=== PATIENT | male | born 1950 | race Caucasian/White ===

== ENCOUNTER 2017-11-19 20:43 | Inpatient (IN) | payer MEDICARE ==
[~2017-11-19] VITALS: Ht 162.6 cm; Wt 59.5 kg
[~2017-11-19 20:43] MED LIST: ALL220TA PO; CHLOTAB5; DAY-LIQ6; TAMS0.4C67 PO; ZITH250T PO
[2017-11-19 20:44] VITALS: BP 158/84; PULSE 78; RESP 16; TEMP 98.6; O2SAT 100
[2017-11-19] MEDS ORDERED: SODIUM CHLOR 0.9% 1000 ML INJ 1,000 ML IV ONE (21:46)
[2017-11-19] MEDS ORDERED: CEPH-460 PO (21:46)
--- NOTE | 2017-11-19 21:50 | PD ---
HPI Chief Complaint: Pain: Acute or Chronic Time Seen by Provider: 21:36 Travel History International Travel<30 days: No Contact w/Intl Traveler<30days: No Traveled to known affect area: No History of Present Illness HPI 67-year-old male presents to the emergency department for evaluation of left low back pain that radiates to the left groin. He states this started approximately 6 hours ago. He states is currently 3/10, dull pain. He states it was worse earlier, but relieved when he was at work. He denies any fevers or chills. No current chest pain or shortness of breath. No nausea, vomiting, diarrhea. He does state that he recently had 2 abscesses to the buttocks drained. He states these are doing well and healing. He is currently taking Keflex for this. Patient has a history nephrolithiasis. Moderate severity. No exacerbating or alleviating factors. 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) Reproductive: No Respiratory: Yes (BRONCHITIS) Immunizations Current: Yes Radiation Therapy: No Renal Failure: No Thyroid Disease: No Past Surgical History Abdominal Surgery: Yes (BILATERAL HERNIA REPAIR) Cardiac Surgery: No Ear Surgery: No Endocrine Surgery: No Eye Surgery: No Genitourinary Surgery: Yes (LITHOTRIPSY X2) Gynecologic Surgery: No Oral Surgery: No Pacemaker: No Thoracic Surgery: No Other Surgery: Yes (GROWTH REMOVED LEFT ARM) Social History Alcohol Use: Yes (SELDOM) Tobacco Use: No Substance Use: No Allergies-Medications (Allergen,Severity, Reaction): Coded Allergies: No Known Allergies (Verified Allergy, Unknown, 11/20/17) Reported Meds & Prescriptions Reported Meds & Active Scripts Active Reported Keflex (Cephalexin) 500 Mg Cap 500 Mg PO Q8H Review of Systems Except as stated in HPI: all other systems reviewed are Neg Physical Exam Narrative GENERAL: Well-nourished, well-developed male patient, afebrile. SKIN: Focused skin assessment warm/dry. Patient has healing abscesses to bilateral buttocks without pain to palpation. Mild erythema noted. HEAD: Normocephalic. Atraumatic. EYES: No scleral icterus. No injection or drainage. NECK: Supple, trachea midline. No JVD or lymphadenopathy. CARDIOVASCULAR: Regular rate and rhythm without murmurs, gallops, or rubs. RESPIRATORY: Breath sounds equal bilaterally. No accessory muscle use. Lungs sounds are clear to auscultation. GASTROINTESTINAL: Abdomen soft, non-tender, nondistended. Patient has mild tenderness over left groin region. MUSCULOSKELETAL: No cyanosis, or edema. BACK: Nontender without obvious deformity. No CVA tenderness. Data Data Last Documented VS Vital Signs Date Time Temp Pulse Resp B/P (MAP) Pulse Ox O2 Delivery O2 Flow Rate FiO2 11/19/17 20:44 98.6 78 16 158/84 (108) 100 Room Air Orders Orders Complete Blood Count With Diff (11/19/17 21:46) Comprehensive Metabolic Panel (11/19/17 21:46) Urinalysis - C+S If Indicated (11/19/17 21:46) Ct Abd/Pel W/O Iv Contrast (11/19/17 21:46) Ecg Monitoring (11/19/17 21:46) Iv Access Insert/Monitor (11/19/17 21:46) Ondansetron Inj (Zofran Inj) (11/19/17 22:00) Sodium Chloride 0.9% Flush (Ns Flush) (11/19/17 22:00) Sodium Chlor 0.9% 1000 Ml Inj (Ns 1000 M (11/19/17 21:46) Lipase (11/19/17 21:46) Urine Culture (11/19/17 21:55) Ceftriaxone Inj (Rocephin Inj) (11/19/17 23:15) Admit Order (Ed Use Only) (11/19/17 ) Vital Signs (Adult) Q4H (11/19/17 23:56) Activity Oob With Assistance (11/19/17 23:56) Notify Dr: Other (11/19/17 23:56) Labs Laboratory Tests Test 11/19/17 21:55 White Blood Count 9.7 TH/MM3 Red Blood Count 4.67 MIL/MM3 Hemoglobin 14.5 GM/DL Hematocrit 42.1 % Mean Corpuscular Volume 90.2 FL Mean Corpuscular Hemoglobin 31.1 PG Mean Corpuscular Hemoglobin Concent 34.5 % Red Cell Distribution Width 13.2 % Platelet Count 273 TH/MM3 Mean Platelet Volume 8.6 FL Neutrophils (%) (Auto) 77.1 % Lymphocytes (%) (Auto) 14.4 % Monocytes (%) (Auto) 7.3 % Eosinophils (%) (Auto) 0.5 % Basophils (%) (Auto) 0.7 % Neutrophils # (Auto) 7.4 TH/MM3 Lymphocytes # (Auto) 1.4 TH/MM3 Monocytes # (Auto) 0.7 TH/MM3 Eosinophils # (Auto) 0.0 TH/MM3 Basophils # (Auto) 0.1 TH/MM3 CBC Comment DIFF FINAL Differential Comment Urine Color LIGHT-YELLOW Urine Turbidity CLEAR Urine pH 5.0 Urine Specific [place] 1.013 Urine Protein NEG mg/dL Urine Glucose (UA) NEG mg/dL Urine Ketones NEG mg/dL Urine Occult Blood MOD Urine Nitrite NEG Urine Bilirubin NEG Urine Urobilinogen LESS THAN 2.0 MG/DL Urine Leukocyte Esterase SMALL Urine RBC 21 /hpf Urine WBC 9 /hpf Urine Mucus FEW /lpf Microscopic Urinalysis Comment CULTURE INDICATED Blood Urea Nitrogen 22 MG/DL Creatinine 1.12 MG/DL Random Glucose 92 MG/DL Total Protein 7.7 GM/DL Albumin 4.0 GM/DL Calcium Level 8.4 MG/DL Alkaline Phosphatase 64 U/L Aspartate Amino Transf (AST/SGOT) 26 U/L Alanine Aminotransferase (ALT/SGPT) 26 U/L Total Bilirubin 0.5 MG/DL Sodium Level 139 MEQ/L Potassium Level 4.1 MEQ/L Chloride Level 106 MEQ/L Carbon Dioxide Level 24.6 MEQ/L Anion Gap 8 MEQ/L Estimat Glomerular Filtration Rate 65 ML/MIN Lipase 217 U/L [facility] Medical Decision Making Medical Screen Exam Complete: Yes Emergency Medical Condition: Yes Medical Record Reviewed: Yes Interpretation(s) Last Impressions Abdomen/Pelvis CT 11/19/172145 Signed Impressions: Service Date/Time: Sunday, November 19, 2017 22:02 - CONCLUSION: 1. Large obstructing stones of the right UPJ and left UVJ. Please see above. Obstruction is associated with perinephric edema on the left. Both stones can be seen on the initial digital producer radiograph. 2. Multiple nonobstructing stones in both kidneys. 3. Cholelithiasis without evidence of cholecystitis or biliary obstruction. 4. Diverticulosis without diverticulitis. Star Maxwell MD Differential Diagnosis Nephrolithiasis versus ureterolithiasis versus UTI versus pyelonephritis Narrative Course 67-year-old male presents to the emergency department for evaluation of left low back pain that radiates to the left groin that started today. IV access established. CBC, CMP, lipase, UA are ordered and pending. CT abdomen/pelvis without contrast is ordered and pending. Patient is given normal saline 1 L IV bolus, Zofran 4 mg IV. CBC shows no acute abnormality. UA shows moderate occult blood, small leukocyte esterase, 9 WBC, [address] abdomen/pelvis shows large instructing stones of the right UPJ and left UVJ. Obstruction is associated with perinephric edema on the left. Both stones can be seen on the initial digital producer radiograph. He also has multiple nonobstructing stones in both kidneys. Patient is given Rocephin 1 g IV for UTI. CMP, lipase are pending. Dr. Knowles will follow up on results and admit patient. Ayanna Deras Nov 19, 2017 21:50
[2017-11-19] MEDS ORDERED: SODIUM CHLORIDE 0.9% FLUSH 10 ML FLUSH IVF PRN (22:00)
[2017-11-19] MEDS ORDERED: ONDANSETRON HCL 4 MG/2 ML VIAL IV PUSH ONE (22:00)
[2017-11-19 22:24] LABS: AUTOMATED NEUTROPHIL # 7.4 TH/MM3 (1.8-7.7); BASOPHIL # 0.1 TH/MM3 (0-0.2); BASOPHIL % 0.7 % (0.0-2.0); EOSINOPHIL % 0.5 % (0.0-4.0); HEMATOCRIT 42.1 % (39.0-51.0); HEMOGLOBIN 14.5 GM/DL (13.0-17.0); LYMPH % 14.4 % (9.0-44.0); LYMPHOCYTE # 1.4 TH/MM3 (1.0-4.8); MEAN CELL VOLUME 90.2 FL (80.0-100.0); MEAN CORPUSCULAR HEMOGLOBIN 31.1 PG (27.0-34.0); MEAN CORPUSCULAR HGB CONC 34.5 % (32.0-36.0); MEAN PLATELET VOLUME 8.6 FL (7.0-11.0); MONO % 7.3 % (0.0-8.0); MONOCYTE # 0.7 TH/MM3 (0-0.9); NEUT % 77.1 % (16.0-70.0); PLATELET COUNT 273 TH/MM3 (150-450); RED BLOOD COUNT 4.67 MIL/MM3 (4.50-5.90); RED CELL DISTRIBUTION WIDTH 13.2 % (11.6-17.2); WHITE BLOOD COUNT 9.7 TH/MM3 (4.0-11.0)
--- NOTE | 2017-11-19 22:26 | RADRPT ---
EXAM DATE/TIME: 11/19/2017 22:02 [place] COMPARISON: Report only CT ABDOMEN & PELVIS W/O CONTRAST, December 31, 2013, 17:18. INDICATIONS : Flank pain. ORAL CONTRAST: No oral contrast ingested. RADIATION DOSE: 4.42 CTDIvol (mGy) MEDICAL HISTORY : Hypertension. Renal calculi. SURGICAL HISTORY : None. ENCOUNTER: Initial ACUITY: 1 day PAIN SCALE: 4/10 LOCATION: Bilateral flank TECHNIQUE: Volumetric scanning of the abdomen and pelvis was performed. Using automated exposure control and ad justment of the mA and/or kV according to patient size, radiation dose was kept as low as reasonably achievable to obtain optimal diagnostic quality images. DICOM format image data is available electro nically for review and comparison. FINDINGS: There is an 8 x 10 x 12 mm stone in the proximal right ureter, just below the UPJ and causes mild to moderate hydronephrosis. There is a 5 x 10 x 7 mm stone of the left ureterovesical junction causing moderate hydronephrosis an d hydroureter. This includes mild left perinephric edema. Nonobstructing 2 x 3 mm stone of the right lower pole, 10 mm stone in the left mid zone and multiple stones measuring up to 10 mm of the left lower pole. Noncontrast appearance of the liver, spleen, pancreas and adrenal glands within normal limits. Severa l small stones are seen in an otherwise normal-appearing gallbladder. There is no duct stone or ducta l dilatation. Mild to moderate diverticulosis seen of the sigmoid colon. No acute inflammatory changes. The appendi x is normal. Visualized lung bases are clear. No acute bony abnormality demonstrated. CONCLUSION: 1. Large obstructing stones of the right UPJ and left UVJ. Please see above. Obstruction is associate d with perinephric edema on the left. Both stones can be seen on the initial clinical rehab liaison radiograph. 2. Multiple nonobstructing stones in both kidneys. 3. Cholelithiasis without evidence of cholecystitis or biliary obstruction. 4. Diverticulosis without diverticulitis. Star Maxwell MD on November 19, 2017 at 22:20 Board Certified Radiologist. This report was verified electronically.
[2017-11-19 22:53] LABS: BILIRUBIN, URINE NEG (NEG); BLOOD, URINE MOD (NEG); GLUCOSE,URINE NEG (NEG); KETONE, URINE NEG (NEG); MUCUS URINE FEW /lpf (OCC); NITRITE,URINE NEG (NEG); URINE COLOR LIGHT-YELLOW (YELLW/STRAW); URINE LEUKOCYTE ESTERASE SMALL (NEG)
[2017-11-19 23:05] LABS: ALKALINE PHOSPHATASE 64 U/L (45-117); TOTAL BILIRUBIN ADULT 0.5 MG/DL (0.2-1.0); TOTAL PROTEIN 7.7 GM/DL (6.4-8.2)
[2017-11-19 23:07] LABS: ALT (GPT) 26 U/L (12-78); AST (GOT) 26 U/L (15-37); BICARBONATE 24.6 MEQ/L (21.0-32.0); BLOOD UREA NITROGEN 22 MG/DL (7-18); CALCIUM 8.4 MG/DL (8.5-10.1); CHLORIDE 106 MEQ/L (98-107); CREATININE 1.12 MG/DL (0.60-1.30); GLOMERULAR FILTRATION RATE 65 ML/MIN (>89); GLUCOSE,RANDOM 92 MG/DL (74-106); LIPASE 217 U/L (73-393); SODIUM (NA) 139 MEQ/L (136-145)
[2017-11-19] MEDS ORDERED: cefTRIAXone INJ 1,000 MG in SODIUM CHLORIDE 0.9% INJ 100 ML IV ONE (23:15)
--- NOTE | 2017-11-19 23:50 | HHI.HP ---
[facility] Primary Care Physician Admission Diagnosis Diagnoses: (1) Renal stones Diagnosis: Principal (2) Hydronephrosis Diagnosis: Principal (3) UTI (urinary tract infection) Diagnosis: Principal (4) Intractable pain Diagnosis: Principal (5) HTN (hypertension) Diagnosis: Principal Travel History International Travel<30 Days: No Contact w/Intl Traveler <30 Da: No Traveled to Known Affected Are: No History of Present Illness This is a 67-year-old male with a PMH of Renal Stones and HTN who presented to the ER with complaints of left-sided back pain starting few hours prior to arrival. States pain comes in waves, at times is severe, 10/10, sharp, intermittent and radiates to left groin, other times pain is 3-4/10. Denies fever, chills, nausea or vomiting. States he's been taking Keflex for gluteal abscesses and thought symptoms might be due to antibiotics. On arrival, BP 158/ 84, HR 78, O2 sat 100% on RA, Afebrile. CBC unremarkable. Chemistry essentially unremarkable except for BUN 22, GFR 65. UA positive for UTI. CT Abd/Pelvis w/ large obstructing stones at the right UPJ and left UVJ w/ moderate hydronephrosis and perinephric stranding. S/p Rocephin, Zofran and IVF in ER. Review of Systems Except as stated in HPI: all other systems reviewed are Neg ROS: 14 point review of systems otherwise negative. Past Family Social History Past Medical History PMH: Renal Stones and HTN Past Surgical History PAST SURGICAL HISTORY: Bilateral Hernia Repair, Lithotripsy Allergies: Coded Allergies: No Known Allergies (Verified Allergy, Unknown, 11/20/17) Family History PAST FAMILY HISTORY: Reviewed. No h/o DM or CAD Social History PAST SOCIAL HISTORY: Occasional alcohol. Negative for tobacco or drugs. Physical Exam Vital Signs Vital Signs Date Time Temp Pulse Resp B/P (MAP) Pulse Ox O2 Delivery O2 Flow Rate FiO2 11/19/17 20:44 98.6 78 16 158/84 (108) 100 Room Air Physical Exam PE: GENERAL: Pleasant middle-aged male in no acute distress. HEENT: PERRLA, EOMI. No scleral icterus or conjunctival pallor. No lid lag or facial droop. CARDIOVASCULAR: Regular rate and rhythm. No obvious murmurs to auscultation. No chest tenderness to palpation. RESPIRATORY: No obvious rhonchi or wheezing. Clear to auscultation. Breath sounds equal bilaterally. GASTROINTESTINAL: Abdomen soft, non-tender, nondistended. BS normal. Left flank /groin tenderness to palpation. MUSCULOSKELETAL: Extremities without clubbing, cyanosis, or edema. No obvious deformities. NEUROLOGICAL: Awake, alert and oriented x4. No focal neurologic deficits. Moving both upper and lower extremities spontaneously. Laboratory Laboratory Tests Test 11/19/17 21:55 White Blood Count 9.7 Red Blood Count 4.67 Hemoglobin 14.5 Hematocrit 42.1 Mean Corpuscular Volume 90.2 Mean Corpuscular Hemoglobin 31.1 Mean Corpuscular Hemoglobin Concent 34.5 Red Cell Distribution Width 13.2 Platelet Count 273 Mean Platelet Volume 8.6 Neutrophils (%) (Auto) 77.1 Lymphocytes (%) (Auto) 14.4 Monocytes (%) (Auto) 7.3 Eosinophils (%) (Auto) 0.5 Basophils (%) (Auto) 0.7 Neutrophils # (Auto) 7.4 Lymphocytes # (Auto) 1.4 Monocytes # (Auto) 0.7 Eosinophils # (Auto) 0.0 Basophils # (Auto) 0.1 CBC Comment DIFF FINAL Differential Comment Urine Color LIGHT-YELLOW Urine Turbidity CLEAR Urine pH 5.0 Urine Specific [place] 1.013 Urine Protein NEG Urine Glucose (UA) NEG Urine Ketones NEG Urine Occult Blood MOD Urine Nitrite NEG Urine Bilirubin NEG Urine Urobilinogen LESS THAN 2.0 Urine Leukocyte Esterase SMALL Urine RBC 21 Urine WBC 9 Urine Mucus FEW Microscopic Urinalysis Comment CULTURE INDICATED Blood Urea Nitrogen 22 Creatinine 1.12 Random Glucose 92 Total Protein 7.7 Albumin 4.0 Calcium Level 8.4 Alkaline Phosphatase 64 Aspartate Amino Transf (AST/SGOT) 26 Alanine Aminotransferase (ALT/SGPT) 26 Total Bilirubin 0.5 Sodium Level 139 Potassium Level 4.1 Chloride Level 106 Carbon Dioxide Level 24.6 Anion Gap 8 Estimat Glomerular Filtration Rate 65 Lipase 217 Date/Time Source Procedure Growth Status 11/19/17 21:55 Urine Clean Catch Urine Culture Pending Received Result Diagram: 11/19/17215411/19/172154 Caprini VTE Risk Assessment Caprini VTE Risk Assessment: No/Low Risk (score <= 1) Caprini Risk Assessment Model Point Value = 1 Point Value = 2 Point Value = 3 Point Value = 5 Age 41-60 Minor surgery BMI > 25 kg/m2 Swollen legs Varicose veins or History of unexplained or recurrent spontaneous Oral contraceptives or hormone replacement Sepsis (< 1 month) Serious lung disease, including pneumonia (< 1 month) Abnormal pulmonary function Acute myocardial infarction Congestive heart failure (< 1 month) History of inflammatory bowel disease Medical patient at bed rest Age 61-74 Arthroscopic surgery Major open surgery (> 45 min) Laparoscopic surgery (> 45 min) Malignancy Confined to bed (> 72 hours) Immobilizing plaster cast Central venous access Age >= 75 History of VTE Family history of VTE Factor V Leiden Prothrombin [id number] Lupus anticoagulant Anticardiolipin antibodies Elevated serum homocysteine Heparin-induced thrombocytopenia Other congenital or acquired thrombophilia Stroke (< 1 month) Elective arthroplasty Hip, pelvis, or leg fracture Acute spinal cord injury (< 1 month) Prophylaxis Regimen Total Risk Factor Score Risk Level Prophylaxis Regimen 0-1 Low Early ambulation 2 Moderate Order ONE of the following: *Sequential Compression Device (SCD) *Heparin 5000 units SQ BID 3-4 Higher Order ONE of the following medications: *Heparin 5000 units SQ TID *Enoxaparin/Lovenox 40 mg SQ daily (WT < 150 kg, CrCl > 30 mL/min) *Enoxaparin/Lovenox 30 mg SQ daily (WT < 150 kg, CrCl > 10-29 mL/min) *Enoxaparin/Lovenox 30 mg SQ BID (WT < 150 kg, CrCl > 30 mL/min) AND/OR *Sequential Compression Device (SCD) 5 or more Highest Order ONE of the following medications: *Heparin 5000 units SQ TID (Preferred with Epidurals) *Enoxaparin/Lovenox 40 mg SQ daily (WT < 150 kg, CrCl > 30 mL/min) *Enoxaparin/Lovenox 30 mg SQ daily (WT < 150 kg, CrCl > 10-29 mL/min) *Enoxaparin/Lovenox 30 mg SQ BID (WT < 150 kg, CrCl > 30 mL/min) AND *Sequential Compression Device (SCD) Assessment and Plan Problem List: (1) Renal stones ICD Code: N20.0 - Calculus of kidney (2) Hydronephrosis ICD Code: N13.30 - Unspecified hydronephrosis (3) Intractable pain ICD Code: R52 - Pain, unspecified (4) UTI (urinary tract infection) ICD Code: N39.0 - Urinary tract infection, site not specified (5) HTN (hypertension) ICD Code: I10 - Essential (primary) hypertension Assessment and Plan A/P: 1. Renal Stones: h/o Renal Stones s/p Lithotripsy now w/ bilateral obstructing stones, [id number] stone right UPJ and [id number] left UVJ. Analgesics /antiemetics as needed. Flomax. IVF for hydration. Consult Urology for further evaluation/likely intervention. 2. Hydronephrosis: CT Abd/Pelvis w/ moderate hydronephrosis bilaterally secondary to above, images reviewed by me. Will monitor closely for progression. 3. UTI: U/a w/ UTI, s/p Rocephin in ER, continue w/ IV Abx, follow up cultures. 4. Intractable Pain: Analgesics/antiemetics as needed. 5. HTN: BP 150's, likely compounded by acute pain. Monitor BP, start antihypertensives as needed. 6. DVT Prophylaxis: SCD/Teds. 7. Social work for d/c planning as needed. 8. Case discussed w/ ER physician at length, labs/imaging/records reviewed by me. Physician Certification 2 Midnight Certification Type: Admission for Inpatient Services Order for Inpatient Services The services are ordered in accordance with Medicare regulations or non- Medicare payer requirements, as applicable. In the case of services not specified as inpatient-only, they are appropriately provided as inpatient services in accordance with the 2-midnight benchmark. Estimated LOS (days): 2 days is the estimated time the patient will need to remain in the hospital, assuming treatment plan goals are met and no additional complications. Post-Hospital Plan: Not yet determined Edith Muñoz MD Nov 19, 2017 23:50
[2017-11-20] VITALS (18 sets, daily range): BP systolic 119–142; BP diastolic 63–76; PULSE 54–76; RESP 16–18; TEMP 98.3–98.5; O2SAT 96–99
[2017-11-20] MEDS ORDERED: MORPHINE SULFATE 2 MG/ML INJ IV PUSH PRN
[2017-11-20] MEDS ORDERED: ACETAMINOPHEN/HYDROcodone 325 MG/5 MG TAB PO PRN
[2017-11-20] MEDS ORDERED: MAGNESIUM HYDROXIDE SUSP 30 ML CUP PO PRN
[2017-11-20] MEDS ORDERED: ONDANSETRON HCL 4 MG/2 ML VIAL IVP PRN
[2017-11-20] MEDS ORDERED: LACTULOSE SYRUP 20 GM/30 ML CUP PO PRN
[2017-11-20] MEDS ORDERED: SODIUM CHLORIDE 0.9% FLUSH 10 ML FLUSH IV FLUSH PRN
[2017-11-20] MEDS ORDERED: SENNOSIDES 8.6 MG TAB PO PRN
[2017-11-20] MEDS ORDERED: BISACODYL 10 MG SUPP RECTAL PRN
[2017-11-20] MEDS ORDERED: ACETAMINOPHEN 325 MG TAB PO PRN
[2017-11-20] MEDS: SODIUM CHLOR 0.9% 1000 ML INJ 1,000 ML IV SCH ×3 (01:30→20:00)
[2017-11-20 07:00] LABS: AUTOMATED NEUTROPHIL # 2.8 TH/MM3 (1.8-7.7); BASOPHIL # 0.1 TH/MM3 (0-0.2); EOSINOPHIL # 0.1 TH/MM3 (0-0.4); EOSINOPHIL % 2.4 % (0.0-4.0); HEMATOCRIT 39.1 % (39.0-51.0); HEMOGLOBIN 13.3 GM/DL (13.0-17.0); LYMPH % 29.2 % (9.0-44.0); LYMPHOCYTE # 1.5 TH/MM3 (1.0-4.8); MEAN CELL VOLUME 90.9 FL (80.0-100.0); MEAN CORPUSCULAR HEMOGLOBIN 30.9 PG (27.0-34.0); MEAN PLATELET VOLUME 7.9 FL (7.0-11.0); MONO % 12.6 % (0.0-8.0); MONOCYTE # 0.7 TH/MM3 (0-0.9); NEUT % 54.8 % (16.0-70.0); PLATELET COUNT 218 TH/MM3 (150-450); RED CELL DISTRIBUTION WIDTH 13.3 % (11.6-17.2); WHITE BLOOD COUNT 5.2 TH/MM3 (4.0-11.0)
[2017-11-20 07:18] LABS: ALBUMIN 3.2 GM/DL (3.4-5.0); ALKALINE PHOSPHATASE 54 U/L (45-117); ALT (GPT) 19 U/L (12-78); AST (GOT) 12 U/L (15-37); BICARBONATE 23.2 MEQ/L (21.0-32.0); BLOOD UREA NITROGEN 13 MG/DL (7-18); CALCIUM 7.9 MG/DL (8.5-10.1); CHLORIDE 111 MEQ/L (98-107); CREATININE 0.92 MG/DL (0.60-1.30); GLOMERULAR FILTRATION RATE 82 ML/MIN (>89); GLUCOSE,RANDOM 92 MG/DL (74-106); SODIUM (NA) 143 MEQ/L (136-145); TOTAL BILIRUBIN ADULT 0.4 MG/DL (0.2-1.0); TOTAL PROTEIN 6.2 GM/DL (6.4-8.2)
--- NOTE | 2017-11-20 08:34 | HHI.PR ---
Subjective Remarks Patient in bed says pain is better controlled . No fever or chills since yesterday. No n/v/d/c. Denies chest pain or sob. Pain is controlled by meds. Seen by Dr Saravia. Plan for stent placement. Objective Vitals Vital Signs Date Time Temp Pulse Resp B/P (MAP) Pulse Ox O2 Delivery O2 Flow Rate FiO2 11/20/17 06:16 58 18 119/70 (86) 99 Room Air 11/20/17 02:14 59 16 140/63 (88) 98 Room Air 11/19/17 20:44 98.6 78 16 158/84 (108) 100 Room Air Result Diagram: 11/20/17 0600 11/20/17 0600 Imaging Last Impressions Abdomen/Pelvis CT 11/19/172145 Signed Impressions: Service Date/Time: Sunday, November 19, 2017 22:02 - CONCLUSION: 1. Large obstructing stones of the right UPJ and left UVJ. Please see above. Obstruction is associated with perinephric edema on the left. Both stones can be seen on the initial compliance engineer radiograph. 2. Multiple nonobstructing stones in both kidneys. 3. Cholelithiasis without evidence of cholecystitis or biliary obstruction. 4. Diverticulosis without diverticulitis. Star Maxwell MD Objective Remarks GENERAL: Pleasant middle-aged male in no acute distress. HEENT: PERRLA, EOMI. No scleral icterus or conjunctival pallor. No lid lag or facial droop. CARDIOVASCULAR: Regular rate and rhythm. No obvious murmurs to auscultation. No chest tenderness to palpation. RESPIRATORY: No obvious rhonchi or wheezing. Clear to auscultation. Breath sounds equal bilaterally. GASTROINTESTINAL: Abdomen soft, non-tender, nondistended. BS normal. Left flank /groin tenderness to palpation. MUSCULOSKELETAL: Extremities without clubbing, cyanosis, or edema. No obvious deformities. NEUROLOGICAL: Awake, alert and oriented x4. No focal neurologic deficits. Moving both upper and lower extremities spontaneously. A/P Problem List: (1) Renal stones ICD Code: N20.0 - Calculus of kidney (2) Hydronephrosis ICD Code: N13.30 - Unspecified hydronephrosis (3) Intractable pain ICD Code: R52 - Pain, unspecified (4) UTI (urinary tract infection) ICD Code: N39.0 - Urinary tract infection, site not specified (5) HTN (hypertension) ICD Code: I10 - Essential (primary) hypertension Assessment and Plan Renal Stones: h/o Renal Stones s/p Lithotripsy now w/ bilateral obstructing stones, [id number] stone right UPJ and [id number] left UVJ. Analgesics/ antiemetics as needed. Flomax. IVF for hydration. Consult Urology for further evaluation/likely intervention. Keep NPO after midnight, plan for OR tomorrow bu Dr Saravia Hydronephrosis: CT Abd/Pelvis w/ moderate hydronephrosis bilaterally secondary to above, images reviewed by me. Will monitor closely for progression. UTI: U/a w/ UTI, s/p Rocephin in ER, continue w/ IV Abx, follow up cultures. Intractable Pain: Analgesics/antiemetics as needed. HTN: BP 150's, likely compounded by acute pain. Monitor BP, start antihypertensives as needed. DVT Prophylaxis: SCD/Teds. Social work for d/c planning as needed. Discussed with the patient, nurse. Cecille Moreland MD Nov 20, 2017 08:34
[2017-11-20] MEDS: DOCUSATE SODIUM 50 MG/SENNA 8.6 MG TAB PO SCH ×2 (09:00→20:46)
[2017-11-20] MEDS: SODIUM CHLORIDE 0.9% FLUSH 10 ML FLUSH IV FLUSH SCH ×2 (09:15→20:46)
[2017-11-20] MEDS: TAMSULOSIN HCL 0.4 MG CAP PO SCH (09:16)
--- NOTE | 2017-11-20 14:45 | PD.CONS ---
HPI Service Urology Consult Requested By Dr. Muñoz Reason for Consult Bilateral obstructing ureteral calculi Primary Care Physician No Primary Care Physician Diagnosis: (1) Renal stones ICD Code: N20.0 - Calculus of kidney (2) Hydronephrosis ICD Code: N13.30 - Unspecified hydronephrosis (3) Intractable pain ICD Code: R52 - Pain, unspecified (4) UTI (urinary tract infection) ICD Code: N39.0 - Urinary tract infection, site not specified (5) HTN (hypertension) ICD Code: I10 - Essential (primary) hypertension History of Present Illness 67 year-old gentleman with history recurrent nephrolithiasis who is status post multiple urologic procedures in the past who presented to emergency room with increasing left flank pain. Workup included a CT scan that demonstrated an obstructing 1 cm left ureterovesical junction calculus with hydronephrosis. Also noted was a 1 cm obstructing right proximal ureteral calculus with hydronephrosis as well. Also noted were multiple bilateral nephrolithiasis. Patient has been afebrile. He denies gross hematuria. BUN and creatinine were not significantly elevated. At the time of consultation the patient's pain was well controlled. He denied dysuria or gross hematuria. Review of Systems Constitutional: DENIES: Fever, Chills Cardiovascular: DENIES: Chest pain Gastrointestinal: DENIES: Abdominal pain Musculoskeletal: COMPLAINS OF: Back pain (left flank) Except as stated in HPI: all other systems reviewed are Neg Past Family Social History Past Medical History Recurrent nephrolithiasis Hypertension Past Surgical History Multiple urologic procedures including shockwave lithotripsy Status post bilateral inguinal herniorrhaphies Reported Medications Refer to EMR Allergies: Coded Allergies: No Known Allergies (Verified Allergy, Unknown, 11/20/17) Active Ordered Medications Refer to EMR Family History Reviewed and noncontributory Social History Denies tobacco, alcohol or intravenous drug abuse Physical Exam Vital Signs Date Time Temp Pulse Resp B/P (MAP) Pulse Ox O2 Delivery O2 Flow Rate FiO2 11/20/17 10:56 67 15 124/72 (89) 98 11/20/17 08:53 98.4 61 16 121/73 (89) 98 Room Air 11/20/17 06:16 58 18 119/70 (86) 99 Room Air 11/20/17 02:14 59 16 140/63 (88) 98 Room Air 11/19/17 20:44 98.6 78 16 158/84 (108) 100 Room Air Physical Exam GENERAL: This is a well-nourished, well-developed patient, in no apparent distress. SKIN: No rashes, ecchymoses or lesions. Cool and dry. HEAD: Atraumatic. Normocephalic. No temporal or scalp tenderness. EYES: Pupils equal round and reactive. Extraocular motions intact. No scleral icterus. No injection or drainage. ENT: Nose without bleeding, purulent drainage or septal hematoma. Throat without erythema, tonsillar hypertrophy or exudate. Uvula midline. Airway patent. NECK: Trachea midline. No JVD or lymphadenopathy. Supple, nontender, no meningeal signs. CARDIOVASCULAR: Regular rate and rhythm without murmurs, gallops, or rubs. RESPIRATORY: Clear to auscultation. Breath sounds equal bilaterally. No wheezes , rales, or rhonchi. GASTROINTESTINAL: Abdomen soft, non-tender, nondistended. No hepato-splenomegaly , or palpable masses. No guarding. GENITOURINARY: No CVA tenderness. Bladder not distended MUSCULOSKELETAL: Extremities without clubbing, cyanosis, or edema. No joint tenderness, effusion, or edema noted. No calf tenderness. Negative Homans sign bilaterally. NEUROLOGICAL: Awake and alert. Cranial nerves II through XII intact. Motor and sensory grossly within normal limits. Five out of 5 muscle strength in all muscle groups. Normal speech. Laboratory Tests Test 11/19/17 21:55 11/20/17 06:00 White Blood Count 9.7 5.2 Red Blood Count 4.67 4.30 Hemoglobin 14.5 13.3 Hematocrit 42.1 39.1 Mean Corpuscular Volume 90.2 90.9 Mean Corpuscular Hemoglobin 31.1 30.9 Mean Corpuscular Hemoglobin Concent 34.5 34.0 Red Cell Distribution Width 13.2 13.3 Platelet Count 273 218 Mean Platelet Volume 8.6 7.9 Neutrophils (%) (Auto) 77.1 54.8 Lymphocytes (%) (Auto) 14.4 29.2 Monocytes (%) (Auto) 7.3 12.6 Eosinophils (%) (Auto) 0.5 2.4 Basophils (%) (Auto) 0.7 1.0 Neutrophils # (Auto) 7.4 2.8 Lymphocytes # (Auto) 1.4 1.5 Monocytes # (Auto) 0.7 0.7 Eosinophils # (Auto) 0.0 0.1 Basophils # (Auto) 0.1 0.1 CBC Comment DIFF FINAL DIFF FINAL Differential Comment Urine Color LIGHT-YELLOW Urine Turbidity CLEAR Urine pH 5.0 Urine Specific [place] 1.013 Urine Protein NEG Urine Glucose (UA) NEG Urine Ketones NEG Urine Occult Blood MOD Urine Nitrite NEG Urine Bilirubin NEG Urine Urobilinogen LESS THAN 2.0 Urine Leukocyte Esterase SMALL Urine RBC 21 Urine WBC 9 Urine Mucus FEW Microscopic Urinalysis Comment CULTURE INDICATED Blood Urea Nitrogen 22 13 Creatinine 1.12 0.92 Random Glucose 92 92 Total Protein 7.7 6.2 Albumin 4.0 3.2 Calcium Level 8.4 7.9 Alkaline Phosphatase 64 54 Aspartate Amino Transf (AST/SGOT) 26 12 Alanine Aminotransferase (ALT/SGPT) 26 19 Total Bilirubin 0.5 0.4 Sodium Level 139 143 Potassium Level 4.1 3.5 Chloride Level 106 111 Carbon Dioxide Level 24.6 23.2 Anion Gap 8 9 Estimat Glomerular Filtration Rate 65 82 Lipase 217 Date/Time Source Procedure Growth Status 11/19/17 21:55 Urine Clean Catch Urine Culture - Preliminary RESULTS PENDING Resulted Result Diagram: 11/20/17 0600 11/20/17 0600 Imaging Last Impressions Abdomen/Pelvis CT 11/19/172145 Signed Impressions: Service Date/Time: Sunday, November 19, 2017 22:02 - CONCLUSION: 1. Large obstructing stones of the right UPJ and left UVJ. Please see above. Obstruction is associated with perinephric edema on the left. Both stones can be seen on the initial senior energy trader radiograph. 2. Multiple nonobstructing stones in both kidneys. 3. Cholelithiasis without evidence of cholecystitis or biliary obstruction. 4. Diverticulosis without diverticulitis. Star Maxwell MD Assessment and Plan Assessment and Plan Urologic impression: #1 obstructing 1 cm left ureterovesical junction calculus as the etiology of the patient's present symptoms #2 obstructing 1 cm right proximal ureteral calculus #3 multiple bilateral renal calculi Plan: #1 npo after midnight #[address] the patient on the OR schedule for sometime tomorrow for cystoscopy, bilateral retrograde pyelogram studies, right ureteral stent placement and left ureteroscopy with laser lithotripsy. #3 risks and benefits discussed with patient Jim Saravia MD Nov 20, 2017 14:45
[2017-11-20] MEDS ORDERED: LACTATED RINGER'S 1000 ML IV PRN (23:30)
[2017-11-20] MEDS ORDERED: CHLORHEXIDINE GLUCONATE 2 % 1 PACK (2 CLOTHS) TOPICAL PRN (23:30)
[2017-11-20] MEDS ORDERED: POVIDONE IODINE 5% (ANTISEPSIS KIT) 4 APPLICATIONS EACH NARE PRN (23:30)
[2017-11-20] MEDS: cefTRIAXone INJ 1,000 MG in SODIUM CHLORIDE 0.9% INJ 100 ML IV SCH (23:35)
[2017-11-21] VITALS (18 sets, daily range): BP systolic 117–135; BP diastolic 69–80; PULSE 54–90; RESP 16–18; TEMP 97.5–98.5; O2SAT 95–98
[2017-11-21] MEDS: SODIUM CHLOR 0.9% 1000 ML INJ 1,000 ML IV SCH ×2 (05:19→18:06)
--- NOTE | 2017-11-21 07:06 | HHI.PR ---
Subjective Remarks Patient seen and examined this am. Vitals are stable and the patient is afebrile. He is sleeping comfortably, easily awakens. Denies abdominal or back pain. Reports slight headache. States he hasnt been able to exercise as much over the last few months. He needs a doctor, says his retired. He denies CP or difficulty breathing. Objective Vital Signs Date Time Temp Pulse Resp B/P (MAP) Pulse Ox O2 Delivery O2 Flow Rate FiO2 11/21/17 06:00 60 11/21/17 05:00 58 11/21/17 04:00 64 11/21/17 04:00 98.0 66 16 123/69 (87) 97 11/21/17 03:00 56 11/21/17 02:00 56 11/21/17 01:00 56 11/21/17 00:00 56 11/20/17 23:35 59 16 127/73 (91) 96 11/20/17 23:00 54 11/20/17 22:00 60 11/20/17 21:00 58 11/20/17 20:00 58 11/20/17 19:15 98.5 66 16 126/66 (86) 97 11/20/17 19:00 64 11/20/17 18:00 68 11/20/17 17:00 60 11/20/17 16:00 98.4 58 16 134/68 (90) 98 11/20/17 16:00 76 11/20/17 15:00 76 11/20/17 14:00 64 11/20/17 13:00 66 11/20/17 12:00 66 11/20/17 12:00 98.3 63 16 142/76 (98) 97 11/20/17 10:56 67 15 124/72 (89) 98 11/20/17 08:53 98.4 61 16 121/73 (89) 98 Room Air I/O 11/20/17 11/20/17 11/20/17 11/21/17 11/21/17 11/21/17 07:00 15:00 23:00 07:00 15:00 23:00 Intake Total 1760 ml 1350 ml Output Total 850 ml Balance 1760 ml 500 ml Intake Oral 400 ml 250 ml IV Total 1360 ml 1100 ml Output Urine Total 850 ml # Voids 1 2 # Bowel Movements 0 0 Result Diagram: 1/14/18 0600 11/20/17 0600 Imaging Last Impressions Abdomen/Pelvis CT 11/19/176 Signed Impressions: Service Date/Time: Sunday, November 19, 2017 22:02 - CONCLUSION: 1. Large obstructing stones of the right UPJ and left UVJ. Please see above. Obstruction is associated with perinephric edema on the left. Both stones can be seen on the initial residential appliance repair technician radiograph. 2. Multiple nonobstructing stones in both kidneys. 3. Cholelithiasis without evidence of cholecystitis or biliary obstruction. 4. Diverticulosis without diverticulitis. Star Maxwell MD Objective Remarks GENERAL: laying comfortably, nad SKIN: Warm and dry. HEAD: Normocephalic. EYES: No scleral icterus. No injection or drainage. NECK: Supple, trachea midline. No JVD or lymphadenopathy. CARDIOVASCULAR: Regular rate and rhythm without murmurs. RESPIRATORY: Breath sounds equal bilaterally. No accessory muscle use. GASTROINTESTINAL: Abdomen soft, non-tender, nondistended. MUSCULOSKELETAL: No cyanosis, or edema. No calf tenderness. A/P Problem List: (1) UTI (urinary tract infection) ICD Code: N39.0 - Urinary tract infection, site not specified (2) Renal stones ICD Code: N20.0 - Calculus of kidney (3) Hydronephrosis ICD Code: N13.30 - Unspecified hydronephrosis Assessment and Plan 67 yo male with a medical history significant for renal stones: Renal Stones - see imaging above, significant for bilateral obstructing stones - Analgesics, antiemetics, Flomax, IV hydration - Dr. Saravia has seen and evaluated the patient: plan for OR today for cystocopy, bilateral retrograde pyelogram, right ureteral stent placement and left ureteroscopy with laser lithotripsy Hydronephrosis - Secondary to above - renal function stable UTI - Urine culture pending - Continue Rocephin DVT prophylaxis: SCDs Discharge Planning d/c pending urological intervention. Carlyn Levy MD Nov 21, 2017 07:06
[2017-11-21] MEDS: DOCUSATE SODIUM 50 MG/SENNA 8.6 MG TAB PO SCH ×2 (09:00→22:35)
[2017-11-21] MEDS: TAMSULOSIN HCL 0.4 MG CAP PO SCH (09:38)
[2017-11-21] MEDS: SODIUM CHLORIDE 0.9% FLUSH 10 ML FLUSH IV FLUSH SCH ×2 (09:41→22:35)
[2017-11-21] MEDS ORDERED: INFLUENZA VIRUS VACCINE (QUADRIVALENT) 0.5 ML SYR IM ONE (10:00)
[2017-11-21] MEDS ORDERED: PNEUMOCOCCAL POLYVALENT INJ 25 MCG/0.5 ML SYR IM ONE (10:00)
[2017-11-21] MEDS ORDERED: LACTATED RINGER'S 1000 ML INJ 1,000 ML IV ONE (12:00)
[2017-11-21] MEDS ORDERED: PHENYLEPH/NS 1000 MCG/10 ML SYR IV ONE (12:00)
[2017-11-21] MEDS ORDERED: LIDOCAINE HCL 1% PF 5 ML SYRINGE OTHER ONE (12:00)
[2017-11-21] MEDS ORDERED: ePHEDrine/NS 25 MG/5 ML SYRINGE IV ONE (12:00)
[2017-11-21] MEDS ORDERED: ONDANSETRON HCL 4 MG/2 ML VIAL IV ONE (12:00)
[2017-11-21] MEDS ORDERED: ROCURONIUM INJ 50 MG/5 ML SYRINGE IV PUSH ONE (12:00)
[2017-11-21] MEDS ORDERED: PROPOFOL 200 MG/20 ML AMP IV ONE (12:00)
[2017-11-21] MEDS ORDERED: DEXAMETHASONE SOD PHOS 4 MG/ML VIAL IV ONE (12:00)
[2017-11-21] MEDS ORDERED: NEOSTIGMINE 5 MG/5 ML SYRINGE IV PUSH ONE (12:00)
[2017-11-21] MEDS ORDERED: GLYCOPYRROLATE 1 MG/5 ML SYRINGE IV PUSH ONE (12:00)
[2017-11-21] MEDS ORDERED: SUGAMMADEX SODIUM 200 MG/2 ML VIAL IV PUSH ONE (14:30)
--- NOTE | 2017-11-21 15:07 | EKG ---
Date Performed: 11/21/2017 Time Performed: 04:11:16 PTAGE: 67 years EKG: Sinus bradycardia Poor R wave progression - probable normal variant Septal T wave changes a re nonspecific Since previous tracing, no significant change noted Borderline ECG PREVIOUS TRACING : 02/18/2009 12.33 DOCTOR: Javier Vasques Interpretating Date/Time 11/21/2017 15:06:44
--- NOTE | 2017-11-21 16:34 | PD.OP ---
Operative Report Date of Surgery: Nov 21, 2017 Preoperative Diagnosis: (1) Bilateral ureteral calculi Postoperative Diagnosis: (1) Bilateral ureteral calculi Procedure: Cystoscopy, right retrograde pyelogram, right ureteral stent placement, left retrograde pyelogram, left ureteroscopy with laser lithotripsy and placement of open-ended left ureteral catheter. Anesthesia: General Surgeon: Jim Saravia Program Technician(s): None Operation and Findings: Indication for procedures: Case of a pleasant 67 year-old gentleman with obstructing bilateral ureteral calculi each measuring approximately 1 cm. On the right side the stone is obstructing the proximal ureter and on the left it is at the left ureterovesical junction. Patient presents now for cystoscopy, bilateral retrograde pyelogram studies, right ureteral stent placement and left ureteroscopy with laser lithotripsy. Operative procedure in detail: Patient was brought to the operating suite placed supine on table. He was then placed and general anesthesia. He was then repositioned in the dorsolithotomy position and prepped and draped in normal sterile fashion. After appropriate timeout was undertaken I proceeded with cystoscopic evaluation utilizing the rigid cystoscope with a 20 Gu[place]an sheath and 30 lens. The urethra was patent without stricture formation, the prostatic urethra was nonobstructing, further passage of cystoscope demonstrated both right and left ureteral orifices to be in correct anatomic position. There were no bladder mucosal lesions, calculi or diverticula formation. I then proceeded to perform a right retrograde pyelogram study lysing 6 Guinean open-ended ureteral catheter. The patient was noted to have an approximate 1 cm obstructing right proximal ureteral stone. I was able to advance a sensor 0.035 wire of the patient's right ureter beyond the stone into the right renal pelvis. A 6 Guinean 24 cm business process associate double-J stent was then placed on the both cystoscopic and fluoroscopic guidance without difficulty. Once the stent was in proper position, the trailing string was removed. The focus of attention was then directed to the patient's left side and the 6 [place]an open-ended ureteral catheter was once again utilized to perform a left retrograde pyelogram. The patient was noted to have a approximate 1 cm obstructing left distal ureteral stone. I was able to advance the same sensor wire around the stone and up into the left renal pelvis. With the wire in place , the cystoscope was withdrawn and the wire secured to a sterile drape with a hemostat. I then passed the rigid ureteroscope alongside the wire approximately 1 cm when the stone was visualized. I then utilized the 200 holmium laser fiber and proceeded with laser lithotripsy of this calculus. A 2.4 Guinean stone basket was then utilized and several of the larger fragments were retrieved and sent off for chemical analysis. There was some oozing of blood at the stone impaction site a decision was made to pass a 6 Guinean open- ended catheter over the previously placed wire. The catheter was advanced 25 cm in cephalad direction and the wire withdrawn. The bladder was drained of all irrigant fluid and the cystoscope withdrawn. A 16 [place] 10 cc Yoder catheter was then placed in the open-ended catheter secured to the Yoder via a connector. Both catheters were then placed to gravity drainage. The patient tolerated the procedures without complications and was transferred to the PACU in satisfactory condition. Jim Saravia MD Nov 21, 2017 16:34
[2017-11-21] MEDS ORDERED: MIDAZOLAM HCL 2 MG/2 ML VIAL ONE (16:37)
[2017-11-21] MEDS ORDERED: *ONDANSETRON 4 MG VIAL PERIprocedural Use ONLY ONE (16:38)
[2017-11-21] MEDS ORDERED: ACETAMINOPHEN 1000 MG/100 ML 100 ML IV ONE (16:38)
[2017-11-21] MEDS ORDERED: DO NOT ADM ANY ANTICOAGULANT DRUGS PRN (17:00)
[2017-11-21] MEDS: cefTRIAXone INJ 1,000 MG in SODIUM CHLORIDE 0.9% INJ 100 ML IV SCH (22:36)
[2017-11-22 00:01] VITALS: PULSE 66
[2017-11-22 00:28] VITALS: BP 121/70; PULSE 71; RESP 16; TEMP 97.7; O2SAT 96
[2017-11-22 03:56] VITALS: BP 137/84; PULSE 69; RESP 18; TEMP 98.6; O2SAT 97
[2017-11-22] MEDS: SODIUM CHLOR 0.9% 1000 ML INJ 1,000 ML IV SCH (04:01)
[2017-11-22 04:09] VITALS: PULSE 68
[2017-11-22 07:40] LABS: BASOPHIL % 0.1 % (0.0-2.0); HEMATOCRIT 39.8 % (39.0-51.0); HEMOGLOBIN 13.9 GM/DL (13.0-17.0); LYMPH % 9.7 % (9.0-44.0); LYMPHOCYTE # 0.8 TH/MM3 (1.0-4.8); MEAN CELL VOLUME 89.3 FL (80.0-100.0); MEAN CORPUSCULAR HEMOGLOBIN 31.1 PG (27.0-34.0); MEAN CORPUSCULAR HGB CONC 34.8 % (32.0-36.0); MEAN PLATELET VOLUME 8.3 FL (7.0-11.0); MONO % 5.5 % (0.0-8.0); MONOCYTE # 0.5 TH/MM3 (0-0.9); NEUT % 84.7 % (16.0-70.0); PLATELET COUNT 225 TH/MM3 (150-450); RED BLOOD COUNT 4.46 MIL/MM3 (4.50-5.90); RED CELL DISTRIBUTION WIDTH 12.7 % (11.6-17.2); WHITE BLOOD COUNT 8.3 TH/MM3 (4.0-11.0)
[2017-11-22 07:44] LABS: BICARBONATE 22.7 MEQ/L (21.0-32.0); CALCIUM 8.6 MG/DL (8.5-10.1); CREATININE 0.84 MG/DL (0.60-1.30)
[2017-11-22 08:00] VITALS: BP 138/76; PULSE 66; RESP 16; TEMP 98.8; O2SAT 98
[2017-11-22 08:24] LABS: BANDS 9 % (0-6); LYMPHOCYTES 10 % (9-44); MONOCYTES 3 % (0-8); NEUTROPHIL # MANUAL DIFF 7.2 TH/MM3 (1.8-7.7); POLYS (SEG NEUTROPHILS) 78 % (16-70)
--- NOTE | 2017-11-22 08:51 | HHI.PR ---
Subjective Remarks This is a pleasant 67 y/o male with Nephrolithiasis status post Cystoscopy, Bilateral retrograde pyelogram, right ureteral stent placement and left ureteroscopy with laser lithotripsy. Stable in his bedroom, okay to discharge by Urology specialist Doctor Jim Saravia. had Constipation improved, also awaiting for the patient to void and voided during the day. No nausea, vomit or diarrhea. Objective Vital Signs Date Time Temp Pulse Resp B/P (MAP) Pulse Ox O2 Delivery O2 Flow Rate FiO2 11/22/17 04:09 68 11/22/17 03:56 98.6 69 18 137/84 (101) 97 11/22/17 00:28 97.7 71 16 121/70 (87) 96 11/22/17 00:01 66 11/21/17 20:55 98.2 75 18 134/75 (94) 98 11/21/17 20:17 68 11/21/17 17:57 97.5 87 18 135/80 (98) 95 11/21/17 17:30 97.7 59 16 118/67 (84) 99 Nasal Cannula 2 11/21/17 17:15 60 13 115/65 (82) 100 Nasal Cannula 2 11/21/17 17:00 90 12 117/73 (88) 100 Nasal Cannula 2 11/21/17 16:45 81 16 115/72 (86) 100 Nasal Cannula 2 11/21/17 16:30 91 16 117/71 (86) 100 Nasal Cannula 2 11/21/17 16:26 97.6 97 17 119/72 (88) 98 Nasal Cannula 2 11/21/17 12:00 63 11/21/17 11:23 98.5 61 16 131/73 (92) 97 11/21/17 11:00 90 11/21/17 10:00 59 11/21/17 09:00 63 I/O 11/21/17 11/21/17 11/21/17 11/22/17 11/22/17 11/22/17 07:00 15:00 23:00 07:00 15:00 23:00 Intake Total 1350 ml 1200 ml 1140 ml Output Total 850 ml 1055 ml 3400 ml Balance 500 ml 145 ml -2260 ml Intake Oral 250 ml 240 ml IV Total 1100 ml 1200 ml 900 ml Output Urine Total 850 ml 1050 ml 3400 ml Estimated Blood Loss 5 ml # Bowel Movements 0 0 Result Diagram: 11/22/17 0625 11/22/17 0625 Imaging Last Impressions Abdomen/Pelvis CT 11/19/172145 Signed Impressions: Service Date/Time: Sunday, November 19, 2017 22:02 - CONCLUSION: 1. Large obstructing stones of the right UPJ and left UVJ. Please see above. Obstruction is associated with perinephric edema on the left. Both stones can be seen on the initial identity access management architect radiograph. 2. Multiple nonobstructing stones in both kidneys. 3. Cholelithiasis without evidence of cholecystitis or biliary obstruction. 4. Diverticulosis without diverticulitis. Star Maxwell MD Procedures Cystoscopy, right retrograde pyelogram, right ureteral stent placement, left retrograde pyelogram, left ureteroscopy with laser lithotripsy and placement of open-ended left ureteral catheter. by Doctor Jim Saravia 11/21/17 Other Results Laboratory Tests Test 11/19/17 21:55 11/20/17 06:00 11/22/17 06:25 Urine Color LIGHT-YELLOW Urine Turbidity CLEAR Urine pH 5.0 Urine Specific [place] 1.013 Urine Protein NEG mg/dL Urine Glucose (UA) NEG mg/dL Urine Ketones NEG mg/dL Urine Occult Blood MOD Urine Nitrite NEG Urine Bilirubin NEG Urine Urobilinogen LESS THAN 2.0 MG/DL Urine Leukocyte Esterase SMALL Urine RBC 21 /hpf Urine WBC 9 /hpf Urine Mucus FEW /lpf Microscopic Urinalysis Comment CULTURE INDICATED Lipase 217 U/L Blood Urea Nitrogen 13 MG/DL 10 MG/DL Creatinine 0.92 MG/DL 0.84 MG/DL Random Glucose 92 MG/DL 104 MG/DL Total Protein 6.2 GM/DL Albumin 3.2 GM/DL Calcium Level 7.9 MG/DL 8.6 MG/DL Alkaline Phosphatase 54 U/L Aspartate Amino Transf (AST/SGOT) 12 U/L Alanine Aminotransferase (ALT/SGPT) 19 U/L Total Bilirubin 0.4 MG/DL Sodium Level 143 MEQ/L 139 MEQ/L Potassium Level 3.5 MEQ/L 3.8 MEQ/L Chloride Level 111 MEQ/L 106 MEQ/L Carbon Dioxide Level 23.2 MEQ/L 22.7 MEQ/L White Blood Count 8.3 TH/MM3 Red Blood Count 4.46 MIL/MM3 Hemoglobin 13.9 GM/DL Hematocrit 39.8 % Mean Corpuscular Volume 89.3 FL Mean Corpuscular Hemoglobin 31.1 PG Mean Corpuscular Hemoglobin Concent 34.8 % Red Cell Distribution Width 12.7 % Platelet Count 225 TH/MM3 Mean Platelet Volume 8.3 FL Neutrophils (%) (Auto) 84.7 % Lymphocytes (%) (Auto) 9.7 % Monocytes (%) (Auto) 5.5 % Eosinophils (%) (Auto) 0.0 % Basophils (%) (Auto) 0.1 % Neutrophils # (Auto) 7.0 TH/MM3 Lymphocytes # (Auto) 0.8 TH/MM3 Monocytes # (Auto) 0.5 TH/MM3 Eosinophils # (Auto) 0.0 TH/MM3 Basophils # (Auto) 0.0 TH/MM3 CBC Comment AUTO DIFF Differential Total Cells Counted 100 Neutrophils % (Manual) 78 % Band Neutrophils % 9 % Lymphocytes % 10 % Monocytes % 3 % Neutrophils # (Manual) 7.2 TH/MM3 Differential Comment FINAL DIFF MANUAL Platelet Estimate NORMAL Platelet Morphology Comment NORMAL Anion Gap 10 MEQ/L Estimat Glomerular Filtration Rate 91 ML/MIN Objective Remarks GENERAL: No acute distress. SKIN: Warm and dry. HEAD: Normocephalic. EYES: No scleral icterus. No injection or drainage. NECK: Supple, trachea midline. No JVD or lymphadenopathy. CARDIOVASCULAR: Regular rate and rhythm without murmurs. RESPIRATORY: Breath sounds equal bilaterally. No accessory muscle use. GASTROINTESTINAL: Abdomen soft, non-tender, nondistended. MUSCULOSKELETAL: No cyanosis, or edema. No calf tenderness. Medications and IVs Current Medications Medications (Trade) Dose Ordered Sig/[place] Route Start Time Stop Time Status Last Admin Ceftriaxone Sodium 1000 mg/ Sodium Chloride 100 ml @ 200 mls/hr Q24H IV 11/20/17 23:00 11/21/17 22:36 Sodium Chloride 1,000 ml @ 100 mls/hr Q10H IV 11/20/17 00:00 11/22/17 04:01 (NS Flush) 2 ml UNSCH PRN IV FLUSH 11/20/17 00:00 11/21/17 12:35 (NS Flush) 2 ml BID IV FLUSH 11/20/17 09:00 11/21/17 22:35 (Zofran Inj) 4 mg Q6H PRN IVP 11/20/17 00:00 (Tylenol) 650 mg Q6H PRN PO 11/20/17 00:00 11/21/17 09:58 ([place] 5-325 Mg) 1 tab Q4H PRN PO 11/20/17 00:00 (Morphine Inj) 2 mg Q3H PRN IV PUSH 11/20/17 00:00 (Elissa-Colace) 1 tab BID PO 11/20/17 09:00 11/21/17 22:35 (Milk Of Magnesia Liq) 30 ml Q12H PRN PO 11/20/17 00:00 (Senokot) 17.2 mg Q12H PRN PO 11/20/17 00:00 (Dulcolax Supp) 10 mg DAILY PRN RECTAL 11/20/17 00:00 (Lactulose Liq) 30 ml DAILY PRN PO 11/20/17 00:00 (Flomax) 0.4 mg DAILY PO 11/20/17 09:00 11/21/17 09:38 Lactated Ringer's 1,000 ml @ 30 mls/hr Q24H PRN IV 11/20/17 23:30 11/23/17 23:29 11/21/17 12:35 (Betadine 5% Antisepsis Kit) 1 applic MOBILE HEAVY EQUIPMENT OPERATOR PRN EACH NARE 11/20/17 23:30 11/23/17 23:29 (Chlorhexidine 2% Cloth) 3 pack MOBILE HEAVY EQUIPMENT OPERATOR PRN TOPICAL 11/20/17 23:30 11/23/17 23:29 Miscellaneous Information ALL NURSING DEPARTME... UNSCH PRN .XX 11/21/17 17:00 11/22/17 16:59 A/P Assessment and Plan 1. Nephrolithiasis, significant for bilateral obstructing stones, Analgesics, antiemetics, Flomax, IV hydration - Cystoscopy, right retrograde pyelogram, right ureteral stent placement, left retrograde pyelogram, left ureteroscopy with laser lithotripsy and placement of open-ended left ureteral catheter. by Doctor Jim Saravia 11/21/17 2. Hydronephrosis read above. 3. UTI on Rocephin urine culture negative. continue Home Keflex at discharge. DVT prophylaxis: SCDs Discharge Home from Urology standpoint. Discharge Planning Discharge Home now. Jose Millan MD Nov 22, 2017 08:51
[2017-11-22] MEDS: SODIUM CHLORIDE 0.9% FLUSH 10 ML FLUSH IV FLUSH SCH (09:00)
[2017-11-22] MEDS: DOCUSATE SODIUM 50 MG/SENNA 8.6 MG TAB PO SCH (09:24)
[2017-11-22] MEDS: TAMSULOSIN HCL 0.4 MG CAP PO SCH (09:24)
[2017-11-22] MEDS ORDERED: GLYCERIN ADULT 2 GM SUPP RECTAL ONE (11:00)
[2017-11-22] MEDS ORDERED: LACTULOSE SYRUP 20 GM/30 ML CUP PO ONE (11:00)
[2017-11-22 11:49] VITALS: BP 155/82; PULSE 83; RESP 18; TEMP 98.4; O2SAT 98
[2017-11-22] MEDS ORDERED: TAMS5CAP PO (13:47)
[2017-11-22] MEDS ORDERED: HYDR-3516 PO (13:47)
--- NOTE | 2017-11-22 13:59 | HHI.DS ---
Discharge Summary Admission Date Nov 19, 2017 at 23:58 Discharge Date: Nov 22, 2017 Admitting Diagnosis (1) Renal stones ICD Code: N20.0 - Calculus of kidney Diagnosis: Principal (2) Hydronephrosis ICD Code: N13.30 - Unspecified hydronephrosis Diagnosis: Principal (3) Intractable pain ICD Code: R52 - Pain, unspecified Diagnosis: Principal (4) UTI (urinary tract infection) ICD Code: N39.0 - Urinary tract infection, site not specified Diagnosis: Principal (5) HTN (hypertension) ICD Code: I10 - Essential (primary) hypertension Diagnosis: Secondary Procedures Cystoscopy, right retrograde pyelogram, right ureteral stent placement, left retrograde pyelogram, left ureteroscopy with laser lithotripsy and placement of open-ended left ureteral catheter. by Doctor Jim Saravia 11/21/17 Brief History - From Admission This is a 67-year-old male with a PMH of Renal Stones and HTN who presented to the ER with complaints of left-sided back pain starting few hours prior to arrival. States pain comes in waves, at times is severe, 10/10, sharp, intermittent and radiates to left groin, other times pain is 3-4/10. Denies fever, chills, nausea or vomiting. States he's been taking Keflex for gluteal abscesses and thought symptoms might be due to antibiotics. On arrival, BP 158/ 84, HR 78, O2 sat 100% on RA, Afebrile. CBC unremarkable. Chemistry essentially unremarkable except for BUN 22, GFR 65. UA positive for UTI. CT Abd/Pelvis w/ large obstructing stones at the right UPJ and left UVJ w/ moderate hydronephrosis and perinephric stranding. S/p Rocephin, Zofran and IVF in ER. CBC/BMP: 11/22/17 0625 11/22/17 0625 Significant Findings Laboratory Tests Test 11/19/17 21:55 11/20/17 06:00 11/22/17 06:25 Neutrophils (%) (Auto) 77.1 % (16.0-70.0) 84.7 % (16.0-70.0) Urine Occult Blood MOD (NEG) Urine Leukocyte Esterase SMALL (NEG) Urine RBC 21 /hpf (0-3) Urine WBC 9 /hpf (0-5) Urine Mucus FEW /lpf (OCC) Blood Urea Nitrogen 22 MG/DL (7-18) Calcium Level 8.4 MG/DL (8.5-10.1) 7.9 MG/DL (8.5-10.1) Estimat Glomerular Filtration Rate 65 ML/MIN (>89) 82 ML/MIN (>89) Red Blood Count 4.30 MIL/MM3 (4.50-5.90) 4.46 MIL/MM3 (4.50-5.90) Monocytes (%) (Auto) 12.6 % (0.0-8.0) Total Protein 6.2 GM/DL (6.4-8.2) Albumin 3.2 GM/DL (3.4-5.0) Aspartate Amino Transf (AST/SGOT) 12 U/L (15-37) Chloride Level 111 MEQ/L (98-107) Lymphocytes # (Auto) 0.8 TH/MM3 (1.0-4.8) Neutrophils % (Manual) 78 % (16-70) Band Neutrophils % 9 % (0-6) Imaging Last Impressions Abdomen/Pelvis CT 11/19/172145 Signed Impressions: Service Date/Time: Sunday, November 19, 2017 22:02 - CONCLUSION: 1. Large obstructing stones of the right UPJ and left UVJ. Please see above. Obstruction is associated with perinephric edema on the left. Both stones can be seen on the initial heel sprayer first radiograph. 2. Multiple nonobstructing stones in both kidneys. 3. Cholelithiasis without evidence of cholecystitis or biliary obstruction. 4. Diverticulosis without diverticulitis. Star Maxwell MD PE at Discharge GENERAL: No acute distress. SKIN: Warm and dry. HEAD: Normocephalic. EYES: No scleral icterus. No injection or drainage. NECK: Supple, trachea midline. No JVD or lymphadenopathy. CARDIOVASCULAR: Regular rate and rhythm without murmurs. RESPIRATORY: Breath sounds equal bilaterally. No accessory muscle use. GASTROINTESTINAL: Abdomen soft, non-tender, nondistended. MUSCULOSKELETAL: No cyanosis, or edema. No calf tenderness. Hospital Course This is a pleasant 67 y/o male with Nephrolithiasis status post Cystoscopy, Bilateral retrograde pyelogram, right ureteral stent placement and left ureteroscopy with laser lithotripsy. Stable in his bedroom, okay to discharge by Urology specialist Doctor Jim Saravia. had Constipation improved, also awaiting for the patient to void and voided during the day. No nausea, vomit or diarrhea. Assessment and Plan 1. Nephrolithiasis, significant for bilateral obstructing stones, Analgesics, antiemetics, Flomax, IV hydration - Cystoscopy, right retrograde pyelogram, right ureteral stent placement, left retrograde pyelogram, left ureteroscopy with laser lithotripsy and placement of open-ended left ureteral catheter. by Doctor Jim Saravia 11/21/17 2. Hydronephrosis read above. 3. UTI on Rocephin urine culture negative. continue Home Keflex at discharge. DVT prophylaxis: SCDs Discharge Home from Urology standpoint. Discharge Planning Discharge Home now. Pt Condition on Discharge: Good Discharge Disposition: Discharge Home Discharge Time: > 30 minutes Discharge Instructions DIET: Follow Instructions for: As Tolerated, No Restrictions Activities you can perform: Regular-No Restrictions Jose Millan MD Nov 22, 2017 13:59
== END 2017-11-22 16:22 | disposition home or self-care (01) | DRG 669 ==
LOC: NEPC 20:43 → NEDA 23:58 → HCPC 11-20 11:00 → HCIN 11-21 17:38
PROVIDERS: ADMIT Internal Medicine; ATTEND Internal Medicine
PROC: 0T768DZ Dilation of Right Ureter with Intraluminal Device, Via Natural or Artificial Opening Endoscopic (ICD-10-PCS; 2017-11-21)
PROC: BT141ZZ Fluoroscopy of Kidneys, Ureters and Bladder using Low Osmolar Contrast (ICD-10-PCS; 2017-11-21)
PROC: 0TC78ZZ Extirpation of Matter from Left Ureter, Via Natural or Artificial Opening Endoscopic (ICD-10-PCS; principal; 2017-11-21 14:43)
DX: N13.2 Hydronephrosis with renal and ureteral calculous obstruction (principal); I10 Essential (primary) hypertension; L02.31 Cutaneous abscess of buttock; N39.0 Urinary tract infection, site not specified; E11.9 Type 2 diabetes mellitus without complications; K59.00 Constipation, unspecified; Z23 Encounter for immunization; Z87.442 Personal history of urinary calculi
CPT/HCPCS: 74176; 74420; 80048; 80053; 81001; 82365; 82370; 83690; 85007; 85025; 85027; 86850; 86900; 86901; 87086; 88300; 90686; 90732; 93005; 96361; 96374; C1769; J0131; J0696; J1100; J2250; J2370; J2405; J2710; J3010; J7030; J7120; Q2038

== ENCOUNTER → 2017-12-14 | Day surgery (SDC) | payer MEDICARE ==
[~2017-12-14] VITALS: Ht 162.6 cm; Wt 60.7 kg
[~2017-12-14] MED LIST changes: -ALL220TA PO; +CHLORHEXIDINE GLUCONATE 2 % 1 PACK (2 CLOTHS) TOPICAL PRN; -CHLOTAB5; -DAY-LIQ6; +DO NOT ADM ANY ANTICOAGULANT DRUGS PRN; +HYDR-3516 PO; +INSULIN HUMAN REGULAR 1,000 UNITS/10 ML VIAL SQ PRN; +LACTATED RINGER'S 1000 ML IV PRN; +METOPROLOL TARTRATE 25 MG TAB PO PRN; +MIDAZOLAM HCL 2 MG/2 ML VIAL ONE; +POVIDONE IODINE 5% (ANTISEPSIS KIT) 4 APPLICATIONS EACH NARE PRN; +PROPOFOL 200 MG/20 ML AMP IV ONE; +SODIUM CHLORID 0.9% 500 ML IV PRN; -TAMS0.4C67 PO; -ZITH250T PO; +ceFAZolin 1,000 MG/NS 100 ML IV SCH
--- NOTE | 2017-12-14 07:51 | RADRPT ---
EXAM DATE/TIME: 12/14/2017 07:38 [facility] COMPARISON: CT ABDOMEN & PELVIS W/O CONTRAST, November 19, 2017, 22:02. INDICATIONS : Pre op right EWSL. MEDICAL HISTORY : Hypertension. Renal calculi. SURGICAL HISTORY : Right ureteral stent. ENCOUNTER: Initial ACUITY: 1 day PAIN SCORE: 0/10 LOCATION: Right abdomen. FINDINGS: Bony structures are intact with benign bowel distribution. There is right ureteral stent in place. At the level of L3 central region of the UPJ there is an 8.5 mm stone adjacent to the stent. On the lef t there are 2 renal calculi one in the mid pole 5 mm in size in one lower pole 7 mm in size CONCLUSION: Right ureteral stent in place. 8.5 mm calculus adjacent to the stent attention at UP junction level o f L3. 2 left renal calculi one midpole 5 mm and lower pole 7 mm in s ize. Saurabh Tanner MD on December 14, 2017 at 7:47 Board Certified Radiologist. This report was verified electronically.
--- NOTE | 2017-12-14 09:58 | PD.OP ---
Operative Report Date of Surgery: Dec 14, 2017 Preoperative Diagnosis: Right ureteral calculus Postoperative Diagnosis: Same Procedure: Right extraportal shockwave lithotripsy Anesthesia: TIVA Surgeon: Néstor Ritter Check Writer(s): None Resident Surgeon: None Operation and Findings: 67-year-old male with a history of a 8 mm proximal right ureteral calculus status post stent insertion by Dr. Patricia in the past. Patient here today to undergo right extracoporeal shockwave lithotripsy. Risk and benefits discussed preoperatively and he was willing to proceed. Patient was brought to the operating room and placed on the operating table in the supine position. He received preprocedure antibiotics and TIVA anesthesia was administered. Under fluoroscopic imaging guidance stone was identified in the right proximal ureter along the stent. ESWL therapy commenced with good fragmentation of stone visualized. The patient received a total of 3000 shocks. He was awoken and transferred recovery room in stable condition. He will follow-up in the office in 2 weeks to obtain a KUB x-ray prior. He does have a few residual stones on the left side within the kidney which are nonobstructing which will need further treatment in the future. Néstor Ritter DO Dec 14, 2017 09:58
[2017-12-14 11:50] VITALS: BP 107/72; PULSE 57; RESP 16; TEMP 97.3; O2SAT 99
== END | disposition home or self-care (01) ==
LOC: HSDC 07:08
PROVIDERS: ATTEND Urology
DX: N20.0 Calculus of kidney (principal); I10 Essential (primary) hypertension
CPT/HCPCS: 00873; 50590; 74018; J2250; J3010; J7120